=== PATIENT | male | born 1940 | race Caucasian/White ===

== ENCOUNTER 2018-06-13 13:12 | Emergency (ER) | payer MEDICARE, OTHER ==
[2018-06-13] MEDS ORDERED: CIPROFLOXACIN/D5W 400 MG in PREMIX BAG 1 BAG IV ONE (14:08)
[2018-06-13] MEDS ORDERED: CIPROFLOXACIN/D5W 200 ML IV ONE (14:29)
[2018-06-13 14:48] LABS: eGFR (Non-African) > 60
--- NOTE | 2018-06-13 15:23 | ED Physician Documentation ---
General Adult - HPI Stated Complaint: Hematuria Chief Complaint: Male Genitourinary Problems Additional Information: Patient, with past medical history of lymphoma, prostate cancer and bladder surgery, presented to ED with a 2 hour history of hematuria. Patient states today around 1000 he passed a blood clot in his urine. Since that time he has had gross hematuria. He has a history of "bladder scraping" several years ago. He denies fever, chills or night sweats, however, has had some lower abdominal dull aching. He denies any other urinary symptoms Onset: hours (2) Timing: still present Severity: mild - ROS CONST: no problems EYES/ENT: none CVS/RESP: none GI/: denies: problems urinating, vomiting, diarrhea MS/SKIN/LYMPH: none NEURO/PSYCH: denies: headache - PAST HX Past History: other (prostate cancer) Other History: other (lymphoma) Surgeries/Procedures: other ("bladder scraping") Allergies/Adverse Reactions: Allergies Allergy/AdvReac Type Severity Reaction Status Date / Time No Known Allergies Allergy Verified 11/17/15 15:38 Home Medications: Ambulatory Orders Medication Instructions Recorded Atorvastatin Calcium [Lipitor] 20 mg PO DAILY 05/25/13 Dicyclomine HCl [Bentyl] 10 mg PO DAILY PRN 05/25/13 Omeprazole 20 mg PO DAILY 05/25/13 Ciprofloxacin HCl [Cipro] 500 mg PO BID #14 tablet 06/13/18 - SOCIAL HX Smoking History: non-smoker Alcohol Use: none Drug Use: none - FAMILY HX Family History: No - VITAL SIGNS Vital Signs: Vital Signs Temp Pulse Resp BP Pulse Ox 98 F 60 14 117/75 98 06/13/18 13:12 06/13/18 13:12 06/13/18 13:12 06/13/18 13:12 06/13/18 13:12 - REVIEWED ASSESSMENTS Nursing Assessment Reviewed: Yes Vitals Reviewed: Yes Progress - Results/Orders Results/Orders: Urinalysis was unable to be read due to significant amount of blood in urine. - Progress Progress: 1538 Patient resting comfortably. Patient has not urinated since urine specimen was taken. ED Results Lab/Radiology - Lab Results Lab Results: Lab Results 06/13/18 14:25 Sodium 133 mmol/L L mmol/L (136-145) Potassium 4.2 mmol/L mmol/L (3.5-5.1) Chloride 111 mmol/L H mmol/L (98-107) Carbon Dioxide 26 mmol/L mmol/L (22-30) BUN 21 mg/dL H mg/dL (9-20) Creatinine 1.20 mg/dL mg/dL (0.66-1.25) Estimated Creat Clear 52 Est GFR ( Amer) > 60 (60 - ) Est GFR (Non-Af Amer) > 60 (60 - ) Glucose 84 mg/dL mg/dL (74-106) Calcium 8.6 mg/dL mg/dL (8.4-10.2) - Orders Orders: ED Orders Category Date Time Status Place IV Lock 1T Care 06/13/18 14:07 Active BMP [BMP] Routine Lab 06/13/18 14:25 Completed CBC REF Stat Lab 06/13/18 14:25 Received Ciprofloxacin/D5w [Cipro] 200 ml Med 06/13/18 14:29 Discontinued IV .STK-MED Ciprofloxacin/D5w [Cipro] 400 mg Med 06/13/18 14:08 Discontinued Premix Bag [Premix Fluid] 1 bag IV NOW General Adult Physical Exam - PHYSICAL EXAM GENERAL APPEARANCE: no distress EENT: eye inspection normal, ENT inspection normal, pharynx normal, no signs of dehydration, JAMEEL, no nystagmus, TM's nml NECK: normal inspection, thyroid normal CVS: reg rate & rhythm, heart sounds normal, equal pulses, no murmur, no gallop, PMI nml, no JVD, no friction rub, 24 ABDOMEN: soft, no organomegaly, normal bowel sounds, no distension BACK: normal inspection, no CVA tenderness SKIN: normal color, warm/dry, NR, INT, PAL, DR EXTREMITIES: non-tender, normal range of motion, no evidence of injury, no edema, J, [employer]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 Return to the ED if blood in urine worsens or you begin to pass more blood clots. Decision to Admit: NO Date of Decison to Admit: 06/13/18 Decision Time: 15:56
[2018-06-13 15:52] LABS: BASO % 0.6 % (0.0-1.5); EOS % 1.4 % (0.0-6.8); LYMPH ABS # 1.74 thou/uL (0.60-4.00); MCH. 32.3 pg (28.0-34.0); MCV 94.7 fL (80.0-100.0); MONOCYTE % 7.3 % (0.0-11.0); PLATELET COUNT 211 thou/uL (130-400)
[2018-06-13 16:29] VITALS: BP 121/69
[2018-06-15 05:57] LABS: APPEARANCE,URINE CLOUDY (CLEAR)
[2018-06-15 05:58] LABS: COLOR,URINE RED (YELLOW)
== END 2018-06-13 16:10 | disposition home or self-care (01) ==
LOC: ED 13:12
DX: R31.0 Gross hematuria (principal)
CPT/HCPCS: 80048; 85025; 87086; J0744; 81002; 96365; 99284; S1016